=== PATIENT | male | born 1945 | race Caucasian/White ===

== ENCOUNTER → 2016-10-17 | Outpatient (REF) | payer MEDICARE ==
[~2016-10-17] MED LIST: ACET500T PO; AMLO10TA2 PO; AMLO5TAB2 PO; BISAC5TA PO; CALC-190 PO; CARV25TA PO; CORE25TA PO; FISH100035 PO; FLUV20CA2 PO; FURO40TA2 PO; LASI40TA PO; LISI40TAB PO; LOSA100T36 PO; PRAD75CA3 PO; VITA100066 PO; VITA500C PO; ZEST10TA4 PO; ZOCO40TA PO
[2016-10-17 20:57] LABS: PERCENT SATURATION 15.4 % (19.7-37.4)
== END ==
LOC: M LAB REF 17:36
PROVIDERS: ATTEND Internal Medicine Nephrology
DX: N18.9 Chronic kidney disease, unspecified (principal); D63.1 Anemia in chronic kidney disease

== ENCOUNTER 2016-10-25 07:50 | Outpatient (CLI) | payer MEDICARE ==
[~2016-10-25] VITALS: Ht 182.9 cm; Wt 147.1 kg
[2016-10-25] MEDS ORDERED: IRON SUCROSE 25 MG in NS 50 ML IV ONE (08:30)
[2016-10-25] MEDS ORDERED: IRON SUCROSE 475 MG in NS 250 ML IV ONE (09:30)
== END 2016-10-25 12:45 | disposition home or self-care (01) ==
LOC: M INFU 07:50
PROVIDERS: ATTEND Internal Medicine Nephrology
DX: D50.9 Iron deficiency anemia, unspecified (principal); I10 Essential (primary) hypertension; E78.5 Hyperlipidemia, unspecified; I50.9 Heart failure, unspecified; G47.30 Sleep apnea, unspecified; M19.90 Unspecified osteoarthritis, unspecified site; M54.2 Cervicalgia; Z87.891 Personal history of nicotine dependence; Z79.899 Other long term (current) drug therapy
CPT/HCPCS: 96365; 96366; J1756

== ENCOUNTER → 2019-02-17 | Outpatient (CLI) | payer MEDICARE ==
[~2019-02-17] MED LIST changes: -AMLO10TA2 PO; +AMLO10TA5 PO; -AMLO5TAB2 PO; +AMLO5TAB6 PO; -FISH100035 PO; +FISH7.5C PO; +LISI40TA PO; -LISI40TAB PO; -LOSA100T36 PO; +LOSA100T50 PO
--- NOTE | 2019-02-17 17:10 | REP ---
REASON: Dyspnea. COMPARISON: 09/24/2016, a portable exam. There is right CP angle blunting with an opacity in the right lower lobe representing a change from the prior exam. There is cardiomegaly. IMPRESSION: Abnormal right lobe opacity with evidence of pleural effusion, underlying pneumonia and or atelectasis can not be ruled out. This needs to be correlated clinically with appropriate. There is also cardiomegaly. Electronically Signed by Chavez Mcpherson DO 02/17/2019 05:20 P
== END ==
LOC: M WUC 15:50
PROVIDERS: ATTEND Nurse Practitioner Family
DX: R91.8 Other nonspecific abnormal finding of lung field (principal); I51.7 Cardiomegaly

== ENCOUNTER → 2019-04-28 | Outpatient (CLI) | payer MEDICARE ==
[~2019-04-28] MED LIST changes: +BAYE325T12 PO; +CARV6.25 PO; +IBUP200T45 PO; +LASI40TA9 PO; +ZYLO300T6 PO
--- NOTE | 2019-04-28 10:13 | REP ---
Chest x-ray: Two views. History: Heart failure. Comparison study: February 17, 2019. Findings: Moderate cardiomegaly is again observed unchanged. Pulmonary vasculature remains cephalized. There is blunting of the right lateral and posterior pleural angles indicating a small right pleural effusion. There is benign pleural thickening along the left lateral chest wall unchanged. No old left pleural effusion is noted. There is plate-like atelectasis versus linear fibrosis in the right perihilar region unchanged from the February 19, 2019 study. Impression: CHF pattern with cardiomegaly, vascular congestion, and right pleural effusion. Findings unchanged from February 17, 2019. Electronically Signed by Dexter Qureshi MD 04/28/2019 10:05 A
== END ==
LOC: M WUC 09:51
PROVIDERS: ATTEND Internal Medicine Nephrology
DX: I51.7 Cardiomegaly (principal); J90 Pleural effusion, not elsewhere classified; N18.3 Chronic kidney disease, stage 3 (moderate); R60.0 Localized edema; I50.9 Heart failure, unspecified

== ENCOUNTER 2019-04-30 13:18 | Inpatient (IN) | payer MEDICARE ==
[~2019-04-30] VITALS: Ht 180.3 cm; Wt 142.7 kg
[~2019-04-30 13:18] MED LIST changes: -BAYE325T12 PO; -CARV6.25 PO; -IBUP200T45 PO; -LASI40TA9 PO; -ZYLO300T6 PO
[2019-04-30] MEDS ORDERED: FURO40TA2 PO (13:56)
[2019-04-30] MEDS ORDERED: ZYLO300T6 PO (13:56)
[2019-04-30 14:01] LABS: BASO # 0.1 10^3/uL (0.0-0.2); BASO % 0.8 % (0.0-1.0); EOS # 0.4 10^3/uL (0.0-0.50); EOS % 4.5 % (0.0-3.0); HEMATOCRIT 39.2 % (42.0-52.0); HEMOGLOBIN 11.9 g/dl (13.5-17.5); LYMPH # 1.2 10^3/uL (1.5-4.5); LYMPH % 15.2 % (24.0-44.0); MEAN CORPUSCULAR HEMOGLOBIN 24.8 pg (27.0-33.0); MEAN CORPUSCULAR HGB CONC 30.4 g/dl (32.0-36.5); MEAN CORPUSCULAR VOLUME 81.7 fl (80.0-96.0); MONO # 0.6 10^3/uL (0.0-0.8); MONO % 8.3 % (0.0-5.0); NEUTROPHILS # 5.4 10^3/uL (1.8-7.7); NEUTROPHILS % 70.7 % (36.0-66.0); PLATELET COUNT, AUTOMATED 243 10^3/uL (150-450); WHITE BLOOD COUNT 7.7 10^3/uL (4.0-10.0)
[2019-04-30] MEDS ORDERED: BAYE325T12 PO (14:07)
[2019-04-30 14:15] LABS: INR 1.06; PARTIAL THROMBOPLASTIN TIME 30.8 SECONDS (25.0-38.4); PROTHROMBIN TIME 13.5 SECONDS (11.8-14.0)
[2019-04-30 14:36] LABS: ALBUMIN 3.4 GM/DL (3.2-5.2); ALT/SGPT 32 U/L (12-78); BILIRUBIN,DIRECT < 0.1 MG/DL (0.0-0.2); BILIRUBIN,TOTAL 0.4 MG/DL (0.2-1.0); BLOOD UREA NITROGEN 64 MG/DL (7-18); CALCIUM LEVEL 9.3 MG/DL (8.8-10.2); CARBON DIOXIDE LEVEL 29 MEQ/L (21-32); CHLORIDE LEVEL 102 MEQ/L (98-107); CK-MB VALUE MASS < 1.0 NG/ML (<3.6); CPK CREATINE PHOSPHOKINASE 149 U/L (39-308); FREE T4 0.97 NG/DL (0.76-1.46); GLOMERULAR FILTRATION RATE 23.7 (>42); GLUCOSE, FASTING 100 MG/DL (70-100); MB/CK RELATIVE INDEX 0.67 (< OR =4); NT-PRO BNP 1256 PG/ML (<125); POTASSIUM SERUM 5.3 MEQ/L (3.5-5.1); SODIUM LEVEL 140 MEQ/L (136-145); TOTAL PROTEIN 8.5 GM/DL (6.4-8.2); TROPONIN I < 0.02 NG/ML (< 0.10)
--- NOTE | 2019-04-30 14:45 | REP ---
Portable chest, 01:59 p.m., single AP view with the patient sitting: Comparison is 04/28/2019. There is cardiomegaly, unchanged. There is a right pleural effusion, unchanged. Pulmonary vascular flow appears cephalized, unchanged. The discoid atelectasis identified inferiorly in the right lung previously has resolved. Impression: No significant interval change except that the right lung discoid atelectasis has resolved. Electronically Signed by Efrain Rosario MD 04/30/2019 02:37 P
[2019-04-30 15:16] LABS: MAGNESIUM LEVEL 2.7 MG/DL (1.8-2.4)
[2019-04-30] MEDS ORDERED: IBUP200T45 PO (15:36)
[2019-04-30] MEDS ORDERED: MOM 30ML SUSPENSION UDC PO PRN (16:15)
[2019-04-30] MEDS ORDERED: FUROSEMIDE 100 MG/10 ML VIAL (J1940) IV ONE (17:00)
--- NOTE | 2019-04-30 19:19 | ECGEPIP ---
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
[2019-04-30 20:00] VITALS: BP 146/93
--- NOTE | 2019-04-30 20:07 | HPEPDOC ---
[facility] Medical History & Physical Date of Admission Apr 30, 2019 Date of Service: Apr 30, 2019 Primary Care Physician: Paulina Norton Attending Physician: PJ SAXENA MD History and Physical CHIEF COMPLAINT: Irregular rhythm on Holter monitor HISTORY OF PRESENT ILLNESS: Terry is a 73-year-old male who presented to the emergency department today on the request of his change management facilitator Dr. Duval after an irregular rhythm was detected on his Holter monitor this morning (). He was only put on a Holter monitor yesterday (04/29) during a scheduled cardiology visit. He was seen by his news clipping cutter on Sunday this week (04/28) who told him that he had developed fluid around his heart. He states that he's been retaining fluid in his lower extremities for the last 3 weeks, experiencing exertional dyspnea, and orthopnea. His PCP's nurse practitioner (Desiree Jean) recently increased his Lasix dose from 40 mg daily to 40 mg twice a day. He states this change in his Lasix considerably decreased his lower extremity edema and improved his exertional dyspnea. While he has had similar symptoms in the past, he states his current symptoms are the most. Patient was accompanied in the ED by his son and [id number]. While in the ED, an EKG, chest x-ray, BMP, CBC, thyroid panel, liver panel, magnesium and cardiac markers were all ordered. Patient was placed on cardiac telemetry. He will be admitted to the hospital under the care of the hospitalist team as we continue to optimize his fluid status and kidney function, and best address his irregular heart rhythm. PAST MEDICAL HISTORY: 1. Diastolic congestive heart failure 2. Chronic kidney disease 3. Essential hypertension 4. History of atrial flutter requiring ablation in 2012 5. Aortic stenosis 6. Obstructive sleep apnea, CPAP non-compliant 7. Gout PAST SURGICAL HISTORY: 1. 2013 ablation for atrial flutter 2. Cataract surgery SOCIAL HISTORY: Resides in: [place], [place] Children: 2 sons Employment:. Retired Tobacco use: Has not smoked in 40-50 years, and when he did, it was for a total of 3-4 years ETOH: None Illicit drug use: None FAMILY HISTORY: (Limited by patient's uncertainty and apathy) Hypertension ALLERGIES: Please see below. REVIEW OF SYSTEMS: CONSTITUTIONAL: Endorses- recent weight loss due to increase in Lasix dosage; Denies chills, diaphoresis, general weakness, fatigue. HEENT: Endorses- age-related hearing loss, rhinorrhea (most commonly in the morning); Denies headache, decreased visual acuity, diplopia, eye pain, ear pain, tinnitus, sore throat, dry mouth or dysphagia. CARDIOVASCULAR: Endorses- lower extremity edema, occasional orthostatic hypotension; Denies- chest pain, chest pressure, palpitations. RESPIRATORY: Endorses- exertional dyspnea, orthopnea; Denies- dyspnea at rest, pain with respiration, cough GASTROINTESTINAL: Denies abdominal pain, abdominal fullness, nausea, vomiting GENITOURINARY: Denies dysuria MUSCULOSKELETAL: Denies decrease in overall muscle strength. NEUROLOGICAL: Denies weakness or numbness. PSYCHIATRIC: Denies anxiety or depression. HOME MEDICATIONS: Please see below. PHYSICAL EXAMINATION: VITAL SIGNS: Please see below GENERAL APPEARANCE: Alert and cooperative elderly man who appears stated age; apathetic at times regarding personal health and medical history; malodorous body odor of urine. HEENT: Atraumatic, normocephalic. Non-icteric sclera. CARDIOVASCULAR: Regular rate, Irregular rhythm, systolic machine-like murmur heard best at right parasternal listening post; no anterior parasternal chest pain on palpitation. LUNGS: Mild crackles in right lung base posteriorly. No wheezes. No accessory muscle use. ABDOMEN:. Soft, mildly distended. Dullness to percussion in upper quadrants bilaterally. Normoactive bowel sounds. MUSCULOSKELETAL:. 5 out of 5 muscle strength testing upper extremity, lower extremity bilaterally. SKIN: Erythematous and weeping/moist sores of lower extremities bilaterally, indicative of chronic lower extremity fluid build-up and thinning of skin; Lower extremity skin sloughing bilaterally EXTREMITIES: Pitting lower extremity and pedal edema bilaterally; 2+ radial pulse bilaterally. NEUROLOGICAL: Sensation to light touch intact upper extremity and lower extre mity bilaterally. PSYCHIATRIC: Appropriate mood and affect. LABORATORY DATA: See below. IMAGING: Portable Chest X-ray, 04/30- showed no significant change except that previous right lung discoid atelectasishas resolved. . He has unchanged cardiomegaly, right pleural effusion, and cephalized pulmonary vascular flow. MICROBIOLOGY: Please see below. ASSESSMENT & PLAN: 1. Bradycardia with pauses and bigeminy and frequent premature ventricular contractions -Patient's rate is currently controlled but rhythm remains irregular with bigeminy and multiple PVCs -We discussed the possibility of patient needing pacemaker to control rate. Patient is amenable to this possibility. Dr. Boykin will see the patient tomorrow to discuss possibility of pacemaker. -We are holding patient's carvedilol due to bradycardia 2. Acutely decompensated diastolic CHF -Patient's Lasix dosage was switched to 60 mg twice a day to promote more substantial diuresis. We will continue to strictly monitor patient's intake and output as well as bed weight -Chest x-ray showed unchanged cardiomegaly. Due to patient's heart failure history, an echocardiogram was ordered 3. 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 We suspect the patient's baseline creatinine is better/lower than 2.8, given it was measured only two days ago. We will pursue office records to determine more accurately his baseline creatinine. -Patient's elevated creatinine is likely secondary to volume overload state due to heart failure. We will continue to monitor his creatinine as we diuresis and suspect it will improve his creatinine. -We will hold all nephrotoxic drugs 4. Essential hypertension -we will hold patient's beta ras (carvedilol) given his bradycardia and continue to monitor his vitals 5. EVERTON, non-compliant with CPAP 6. History of paroxysmal atrial flutter s/p ablation 2012 -Patient is currently on 5000 units of heparin for anticoagulation 7. 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 Gout 9. DVT prophylaxis Patient is receiving heparin 5000 units every 8 hours, subcutaneous Vital Signs Vital Signs Date Time Temp Pulse Resp B/P (MAP) Pulse Ox O2 Delivery O2 Flow Rate FiO2 04/30/19 18:18 81 95 04/30/19 18:17 97.0 20 Room Air 04/30/19 17:46 104/56 (72) Laboratory Data Labs 24H Laboratory Tests 2 04/30/19 13:45: Immature Granulocyte % (Auto) 0.5, White Blood Count 7.7, Red Blood Count 4.80, Hemoglobin 11.9L, Hematocrit 39.2L, Mean Corpuscular Volume 81.7, Mean Corpuscular Hemoglobin 24.8L, Mean Corpuscular Hemoglobin Concent 30.4L, Red Cell Distribution Width 17.4H, Platelet Count 243, Neutrophils (%) (Auto) 70.7H, Lymphocytes (%) (Auto) 15.2L, Monocytes (%) (Auto) 8.3H, Eosinophils (%) (Auto) 4.5H, Basophils (%) (Auto) 0.8, Neutrophils # (Auto) 5.4, Lymphocytes # (Auto) 1.2L, Monocytes # (Auto) 0.6, Eosinophils # (Auto) 0.4, Basophils # (Auto) 0.1, Nucleated Red Blood Cells % (auto) 0.0, Prothrombin Time 13.5, Prothromb Time International Ratio 1.06, Activated Partial Thromboplast Time 30.8, Anion Gap 9, Glomerular Filtration Rate 23.7L, Calcium Level 9.3, Magnesium Level 2.7H, Aspartate Amino Transf (AST/SGOT) 39H, Alanine Aminotransferase (ALT/SGPT) 32, Alkaline Phosphatase 77, Total Bilirubin 0.4, Direct Bilirubin < 0.1, Total Creatine Kinase 149, Creatine Kinase MB < 1.0, Creatine Kinase MB Relative Index 0.67, Troponin I < 0.02, WV-Wck-A-Type Natriuretic Peptide 1256H, Total Protein 8.5H, Albumin 3.4, Albumin/Globulin Ratio 0.67L, Thyroid Stimulating Hormone (TSH) 4.650H, Free Thyroxine 0.97 CBC/BMP Laboratory Tests 04/30/19 13:45 Red Blood Count 4.80, Mean Corpuscular Volume 81.7, Mean Corpuscular Hemoglobin 24.8 L, Mean Corpuscular Hemoglobin Concent 30.4 L, Red Cell Distribution Width 17.4 H, Neutrophils (%) (Auto) 70.7 H, Lymphocytes (%) (Auto) 15.2 L, Monocytes (%) (Auto) 8.3 H, Eosinophils (%) (Auto) 4.5 H, Basophils (%) (Auto) 0.8, Neutrophils # (Auto) 5.4, Lymphocytes # (Auto) 1.2 L, Monocytes # (Auto) 0.6, Eosinophils # (Auto) 0.4, Basophils # (Auto) 0.1 Home Medications Scheduled Allopurinol (Zyloprim) 300 Mg Tablet, 300 MG PO DAILY Aspirin (Aspirin) 325 Mg Tablet, 325 MG PO DAILY Carvedilol (Carvedilol) 25 Mg Tab, 25 MG PO BID Cholecalciferol (Vitamin D3) (Vitamin D3) 1,000 Unit Tab, 1,000 UNIT PO QHS Furosemide (Furosemide) 40 Mg Tablet, 40 MG PO DAILY [place]-3/Dha/Epa/Fish Oil (Fish Oil EC 1,000 mg Softgel) 1 Cap Cap, 1 CAP PO QHS Scheduled PRN Ibuprofen (Ibu-200) 200 Mg Tablet, 600 MG PO Q6H PRN for PAIN Allergies Coded Allergies: Dgpyftx-Iyc-Aqb Reductase Inhibitor (Verified Adverse Reaction, Unknown, STILL/SORE JOINTS, 04/30/19) A-FIB/CHADSVASC A-FIB History Current/History of A-Fib/PAF?: Yes Current PO Anticoag Therapy: Yes Attending Note Attending Note I performed a history and physical examination and discussed the management with the resident and medical student. I reviewed the resident's note and agree with the documented findings and plan of care with following addendum/ amendments. Abnormal holter findings of sinus bradycardia, wide complex tachycardia, ventricular bigemini, sinus pauses upto 4.8 seconds so was sent in by the change management facilitator. patient is on Coreg so will hold it, place on telemetry with pacer pads on . will stop the betablocker and monitor heart rate. Morbid obesity with EVERTON stopped using his CPAP 1 year ago because he felt it was not helping. Diastolic CHF exacerbation continue on lasix, fluid rests Belkis on CKD baseline creatinine around 1.5 to 1.8. this is probably due to fluid overload and chf. Bilateral venous stasis with stasis dermatits and stasis rubor. Both the legs are red with superficial stasis ulcers. I do not think ther is any cellulitis. Sacral decubitus ulcer present. YEN BUTLER PGY-1 Apr 30, 2019 20:07 PJ SAXENA MD Apr 30, 2019 23:01
[2019-04-30] MEDS: OMEGA-3 1000MG CAPSULE PO SCH (21:12)
[2019-04-30] MEDS: HEPARIN SOD (PORCINE) 5000 UNITS/ML VIAL SC SCH (21:12)
[2019-04-30 23:59] VITALS: BP 172/69
[2019-05-01 04:00] VITALS: BP 127/64
[2019-05-01 04:57] LABS: HEMATOCRIT 35.6 % (42.0-52.0); HEMOGLOBIN 10.8 g/dl (13.5-17.5); MEAN CORPUSCULAR HEMOGLOBIN 24.1 pg (27.0-33.0); MEAN CORPUSCULAR HGB CONC 30.3 g/dl (32.0-36.5); MEAN CORPUSCULAR VOLUME 79.5 fl (80.0-96.0); PLATELET COUNT, AUTOMATED 241 10^3/uL (150-450); RED BLOOD COUNT 4.48 10^6/uL (4.30-6.10); WHITE BLOOD COUNT 7.3 10^3/uL (4.0-10.0)
[2019-05-01] MEDS: HEPARIN SOD (PORCINE) 5000 UNITS/ML VIAL SC SCH ×3 (05:17→20:25)
[2019-05-01 05:19] LABS: CREATININE FOR GFR 2.58 MG/DL (0.70-1.30); MAGNESIUM LEVEL 2.6 MG/DL (1.8-2.4); POTASSIUM SERUM 3.4 MEQ/L (3.5-5.1)
[2019-05-01] MEDS ORDERED: POTASSIUM CHLORIDE 10 MEQ SR TABLET PO ONE (05:45)
[2019-05-01] MEDS ORDERED: FUROSEMIDE 100 MG/10 ML VIAL (J1940) IV SCH (06:00)
[2019-05-01] MEDS ORDERED: FUROSEMIDE 40 MG/4 ML VIAL (J1940) IV SCH (06:00)
[2019-05-01 08:00] VITALS: BP 130/73
[2019-05-01] MEDS: ASPIRIN 325 MG TAB PO SCH (08:59)
[2019-05-01] MEDS ORDERED: SLF 3 ML SYR IV PRN (09:00)
[2019-05-01] MEDS: ACETAMINOPHEN TAB 650MG DOSE (2X325MG) PO PRN ×2 (09:01→20:35)
--- NOTE | 2019-05-01 11:47 | IPNPDOC ---
Subjective Date Seen The patient was seen on 05/01/19. Subjective Chief Complaint/HPI Terry was seen and examined this morning while sitting upright in a chair next to his hospital bed. He denies any palpitations currently, or overnight. He states he's been urinating more frequently and denies any dysuria. He was able to ambulate to and from the bathroom without much exertional dyspnea. He had to sleep sitting upright in his chair overnight. He denies any acute pain or adverse events overnight. He is eating and drinking without any issues. General: Denies: Chills Constitutional: Denies: Fever ENT: Denies: Head Aches Pulmonary: Reports: Dyspnea (mild exertional dyspnea); Denies: Cough, Pleuritic Chest Pain Cardiovascular: Reports: Orthopnea; Denies: Chest Pain, Palpitations Gastrointestinal: Denies: Nausea, Vomiting, Abdominal Pain Genitourinary: Denies: Dysuria Neurological: Denies: Weakness, Numbness Objective Physical Examination General Exam: Positive: Alert, Cooperative, Other (appears stated age, sitting comfortably in upright chair) ENT Exam: Negative: Atraumatic Chest Exam: Positive: Rhonchi (moderately coarse breath sounds); Negative: Rales, Wheezing Heart Exam: Positive: Rate Normal (on the lower end of normal but not quite bradycardic), Normal S2, Murmurs (blowing systolic murmur heard best in the second intercostal space on the right); Negative: Gallops, Rubs Telemetry: Positive: PVCs (some PVCs scattered throughout), Other Telemetry: (bigeminy is present); Negative: Atrial fibrillation, Tachycardia, Pause (No pauses this morning seen on telemetry review) Abdomen Exam: Positive: Normal bowel sounds, Soft; Negative: Tenderness Extremity Exam: Positive: Edema (pitting lower extremity and pedal edema bilaterally), Normal pulses (, 2+ radial pulses, difficult to accurately assess posterior tibial or dorsalis pedis pulses due to significant edema and skin breakdown of bilateral lower extremities) Skin Exam: Positive: Other skin issue (. Venous stasis dermatitis with active skin sloughing; venous stasis rubor with active weeping/moist areas of skin breakdown on b/l lower extremities, more pronounced on the left lower extremity); Negative: Pruritus Neuro Exam: Positive: Strength at 5/5 X4 ext Psych Exam: Positive: Mental status NL, Mood NL, Oriented x 3 Assessment /Plan Assessment ASSESSMENT & PLAN: 1. Bradycardia with pauses and bigeminy and frequent premature ventricular contractions -Patient's rate is currently controlled but rhythm remains irregular with bigeminy and multiple PVCs. -There were no pauses visualized on telemetry exam this morning. -We discussed the possibility of patient needing pacemaker to control rate. Patient is amenable to this possibility. -Dr. Boykin who is also following along with the patient would like him to resume his carvedilol at 6.25 mg bid 2. Acutely decompensated diastolic CHF -Patient's Lasix dosage was switched to 60 mg twice a day to promote more substantial diuresis. Patient weight dropped roughly 1-1/2 kg overnight and had examination this morning, his overall I&O net was about -1000 mL. We will continue to strictly monitor patient's intake and output as well as bed weight -Chest x-ray showed unchanged cardiomegaly. Due to patient's heart failure history, an echocardiogram was ordered and we are awaiting interpretation. 3. 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 -Patient's creatinine in the ED measured 2.8, while it was 2.3 on Sunday (04/28) in his manager special events's office. We suspect the patient's baseline creatinine is better/lower than 2.8, given it was measured only two days ago. We will pursue office records to determine more accurately his baseline creatinine. -Patient's elevated creatinine is likely secondary to volume overload state due to heart failure. We will continue to monitor his creatinine as we diuresis and suspect it will improve his creatinine. -We will hold all nephrotoxic drugs 4. Essential hypertension -Patient was put back on carvedilol 6.25 mg bid this morning per Dr. Boykin. We will continue to monitor his vitals 5. EVERTON, non-compliant with CPAP 6. History of paroxysmal atrial flutter s/p ablation 2012 -Patient is currently on 5000 units of heparin for anticoagulation 7. 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 Gout 9. DVT prophylaxis Patient is receiving heparin 5000 units every 8 hours, subcutaneous Plan/VTE VTE Prophylaxis Ordered?: Yes VS, I&O, 24H, Fishbone Vital Signs/I&O Vital Signs Date Time Temp Pulse Resp B/P (MAP) Pulse Ox O2 Delivery O2 Flow Rate FiO2 05/01/19 08:00 97.5 69 20 130/73 (92) 94 04/30/19 19:03 Room Air I&O- Last 24 Hours up to 6 AM 05/01/19 06:00 Intake Total 840 ml Output Total 1675 ml Balance -835 ml Laboratory Data 24H LABS Laboratory Tests 2 04/30/19 13:45: Immature Granulocyte % (Auto) 0.5, White Blood Count 7.7, Red Blood Count 4.80, Hemoglobin 11.9L, Hematocrit 39.2L, Mean Corpuscular Volume 81.7, Mean Corpuscular Hemoglobin 24.8L, Mean Corpuscular Hemoglobin Concent 30.4L, Red Steffi l Distribution Width 17.4H, Platelet Count 243, Neutrophils (%) (Auto) 70.7H, Lymphocytes (%) (Auto) 15.2L, Monocytes (%) (Auto) 8.3H, Eosinophils (%) (Auto) 4.5H, Basophils (%) (Auto) 0.8, Neutrophils # (Auto) 5.4, Lymphocytes # (Auto) 1.2L, Monocytes # (Auto) 0.6, Eosinophils # (Auto) 0.4, Basophils # (Auto) 0.1, Nucleated Red Blood Cells % (auto) 0.0, Prothrombin Time 13.5, Prothromb Time International Ratio 1.06, Activated Partial Thromboplast Time 30.8, Anion Gap 9, Glomerular Filtration Rate 23.7L, Calcium Level 9.3, Magnesium Level 2.7H, Aspartate Amino Transf (AST/SGOT) 39H, Alanine Aminotransferase (ALT/SGPT) 32, Alkaline Phosphatase 77, Total Bilirubin 0.4, Direct Bilirubin < 0.1, Total Creatine Kinase 149, Creatine Kinase MB < 1.0, Creatine Kinase MB Relative Index 0.67, Troponin I < 0.02, RV-Cof-L-Type Natriuretic Peptide 1256H, Total Protein 8.5H, Albumin 3.4, Albumin/Globulin Ratio 0.67L, Thyroid Stimulating Hormone (TSH) 4.650H, Free Thyroxine 0.97 05/01/19 04:27: Nucleated Red Blood Cells % (auto) 0.0, Anion Gap 7L, Glomerular Filtration Rate 26.0L, Calcium Level 9.0, Magnesium Level 2.6H, Blood Urea Nitrogen 56H, Creatinine 2.58H, Sodium Level 141, Potassium Level 3.4#L, Chloride Level 102, Carbon Dioxide Level 32 CBC/BMP Laboratory Tests 04/30/19 13:45 Red Blood Count 4.80, Mean Corpuscular Volume 81.7, Mean Corpuscular Hemoglobin 24.8 L, Mean Corpuscular Hemoglobin Concent 30.4 L, Red Cell Distribution Width 17.4 H, Neutrophils (%) (Auto) 70.7 H, Lymphocytes (%) (Auto) 15.2 L, Monocytes (%) (Auto) 8.3 H, Eosinophils (%) (Auto) 4.5 H, Basophils (%) (Auto) 0.8, Neutrophils # (Auto) 5.4, Lymphocytes # (Auto) 1.2 L, Monocytes # (Auto) 0.6, Eosinophils # (Auto) 0.4, Basophils # (Auto) 0.1 05/01/19 04:27 Red Blood Count 4.48, Mean Corpuscular Volume 79.5 L, Mean Corpuscular Hemoglobin 24.1 L, Mean Corpuscular Hemoglobin Concent 30.3 L, Red Cell Distribution Width 17.5 H, Calcium Level 9.0 Attending Note Attending Note I have personally seen and examined the patient this am. I agree with the finding and the plan of care as documented above in the resident's note. Telemetry personally reviewed. Overnight no pauses noted. Does have frequent bigeminis. Leg swelling improving. Creatinine improving.Echo done. will continue with diuresis. will increase lasix to tid. I personally discussed the patient with Dr Boykin and as per his recommendation will start him on low dose coreg and observe. He does have h/o tachy cardia induced cardiomyopathy with systolic chf with ef of 30 % in 2013 which has fortunately recovered after control of his tachycardia then. SO his heart rate shoul always remain controlled. YEN BUTLER PGY-1 May 01, 2019 11:47 PJ SAXENA MD May 01, 2019 16:38
[2019-05-01 12:00] VITALS: BP 116/58
[2019-05-01] MEDS: CARVedilol 6.25 MG TAB PO SCH ×2 (12:08→20:25)
[2019-05-01] MEDS: SLF 3 ML SYR IV SCH ×2 (13:41→20:27)
[2019-05-01 16:00] VITALS: BP 135/59
[2019-05-01 20:00] VITALS: BP 141/69
[2019-05-01] MEDS: OMEGA-3 1000MG CAPSULE PO SCH (20:25)
[2019-05-01] MEDS: FUROSEMIDE 100 MG/10 ML VIAL (J1940) IV SCH (20:26)
[2019-05-01 23:59] VITALS: BP 132/58
[2019-05-02 04:00] VITALS: BP 143/67
[2019-05-02 04:51] LABS: HEMATOCRIT 39.6 % (42.0-52.0); HEMOGLOBIN 11.6 g/dl (13.5-17.5); MEAN CORPUSCULAR HEMOGLOBIN 23.8 pg (27.0-33.0); MEAN CORPUSCULAR HGB CONC 29.3 g/dl (32.0-36.5); MEAN CORPUSCULAR VOLUME 81.1 fl (80.0-96.0); PLATELET COUNT, AUTOMATED 260 10^3/uL (150-450); RED BLOOD COUNT 4.88 10^6/uL (4.30-6.10); WHITE BLOOD COUNT 8.6 10^3/uL (4.0-10.0)
[2019-05-02 05:15] LABS: CALCIUM LEVEL 9.6 MG/DL (8.8-10.2); CREATININE FOR GFR 2.5 MG/DL (0.70-1.30); MAGNESIUM LEVEL 2.8 MG/DL (1.8-2.4); POTASSIUM SERUM 3.8 MEQ/L (3.5-5.1)
[2019-05-02] MEDS: HEPARIN SOD (PORCINE) 5000 UNITS/ML VIAL SC SCH ×3 (06:14→21:46)
[2019-05-02] MEDS: SLF 3 ML SYR IV SCH ×3 (06:14→23:30)
[2019-05-02] MEDS: FUROSEMIDE 100 MG/10 ML VIAL (J1940) IV SCH ×3 (06:14→21:46)
--- NOTE | 2019-05-02 07:58 | CR ---
DATE OF CONSULTATION: 04/30/2019 REFERRING PHYSICIAN: Dr. Wendy Dye REASON FOR CONSULTATION: Cardiac arrhythmia, sinus pause. HISTORY OF PRESENT ILLNESS: : 73-year-old man well known by the office and usually sees Dr. Romeo. On 04/29/2019 he was seen in the office by the PA upon the recommendation of his executive sales manager. He has been retaining fluids and he was found to have findings consistent with congestive failure on chest x-ray. His furosemide was increased, doubled up by his primary, and he developed some worsening kidney function and then his ARB was discontinued. He was found in the office to have bigeminy on EKG and was given a Holter monitor. This morning at 5:00 to 5:30, he was found to have a couple sinus pauses and the longest was about 4.8 seconds and he was seen in the emergency room for further evaluation. In the emergency room, he was found to be in bigeminy and his vital signs were stable. When I saw him, he was sitting up in the chair and he was in no acute distress at rest. Multiple family members were at bedside. He denies palpitations, dizziness, syncope or near syncope. He stated that his shortness of breath and pedal edema have improved but he continues to have weeping lower extremities, particularly the left lower extremity. He denies any orthopnea or paroxysmal nocturnal dyspnea. He has no cough, hemoptysis or fever. He has no focal manifestation. He usually takes his medication regularly and he has been on carvedilol at 25 mg by mouth twice a day, which he took this morning. He denies palpitation and he stated that he has not been having any palpitations since he had his admission. 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 His most recent left ventricular ejection fraction by echocardiogram was reported to be normal in 2016 as well as in 2019. 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 He also has a history of gout and anemia. There is no history of coronary disease, myocardial infarction, CVA or transient ischemic attack (TIA). MEDICATIONS AT HOME: - allopurinol 100 mg by mouth daily - amlodipine 10 mg tablet 1-1/2 by mouth daily - aspirin 325 mg by mouth daily - carvedilol 25 mg by mouth twice a day - ferrous sulfate 325 mg by mouth daily - furosemide 40 mg by mouth twice a day - fish oil one tablet by mouth daily - vitamin C - D2 400 units in one tablet by mouth three times daily PAST SURGICAL HISTORY: Positive for cardiac surgery. FAMILY HISTORY: Positive for hypertension and diabetes mellitus. SOCIAL HISTORY: The patient lives in [place] and he has multiple family who live in the area and are very supportive. He is a former smoker and quit 1974. He denies EtOH abuse. He is active but not exercising. ALLERGIES: He has intolerance to STATINS. CODE STATUS: The patient is a FULL CODE. PHYSICAL EXAMINATION: The patient is alert and oriented, in no acute distress at rest and his vital signs in the emergency room revealed a blood pressure of 104/56 with a pulse of 84, respiration 18 to 20, maximum temperature is 97 degrees Fahrenheit with an oxygen saturation of 95% on room air. HEAD: Normocephalic, atraumatic. NECK: Supple and no jugular venous distention (JVD) appreciated. No carotid bruits heard. Lungs: No wheezing or crackles. Heart examination revealed irregular heart sounds without gallops. The point of maximum impulse (PMI) is nondisplaced. There is no rub. There is a systolic murmur grade 2/6 over the precordium, loudest at the base of the heart/aortic valve area with minimal radiation to the carotid arteries. Abdomen is soft and nontender. Extremities +2 bilateral lower leg edema. Neurologic: The patient is negative for focal deficit. LABORATORY DATA: BMP revealed a sodium of 140, potassium 5.3, chloride 102, CO2 29, BUN 64, creatinine 2.8, GFR 23.7 and calcium 9.3. Serum magnesium 2.7. Liver enzymes revealed a total bilirubin 0.4, AST 39 ALT 32, alkaline phosphatase 77, albumin 3.4. TSH is 4.6 with a Free T4 of 0.97. Pro BNP is 1256. CBC revealed a WBC of 7.7, hemoglobin 11.9, hematocrit 39.2 and platelet 143,000. Next PT was 13.5 and INR 1.06 and a PTT of 13.8. Telemetry was reviewed and revealed normal sinus rhythm with isolated PVCs and at times even bigeminy. There is an ECG with nonspecific ST-T abnormalities. Chest x-ray on admission revealed cardiomegaly and right pleural effusion, increased vascular markings. No remarkable changes from 04/28/2019. CURRENT MEDICATIONS: - furosemide IV - aspirin 385 mg by mouth daily - heparin subcutaneous 5000 every 8 hours - fish oil 1000 mg by mouth - Tylenol 650 mg by mouth every 4 hours as needed - magnesium hydroxide 30 mL by mouth daily as needed for constipation. IMPRESSION: 73-year-old male with multiple medical programs was recently found to be in heart failure and his EKG revealed bigeminy. He has no history of coronary artery disease and his left ventricular ejection fraction is normal. He has a heart murmur involving the aortic valve with probably moderate aortic stenosis. He was given a Holter monitor and earlier today it revealed 4 to 5 second pause and he was sent to the ER for further evaluation. He was admitted and his condition was discussed with him, as well as his family present in the room and his hospitalist. We will hold the carvedilol for 24 hours and if he remains stable it will be restarted but at the lower dose. We will assess his LVEF while in the hospital and at the same time reassess his underlying aortic stenosis. His blood pressure seems to be under control and he will be monitored. If needed, we can restart him on the amlodipine but at a smaller dose of hydralazine or spirolactone and in that case, we will have to monitor closely his urine creatinine and serum potassium. If his kidney function does not improve while in the hospital, I will ask for a nephrology consult. At the present time, there is no indication for a pacemaker implantation. He was told that he might need one in time. It was a pleasure to participate in the care of Mr. Terry Julio for his underlying cardiac condition. I will continue to monitor him along with you while in the hospital. Upon discharge, he will continue to follow with the office. Please do not hesitate to call if any questions. BRETT
[2019-05-02 08:00] VITALS: BP 139/68
[2019-05-02] MEDS: CARVedilol 6.25 MG TAB PO SCH ×2 (08:43→21:47)
[2019-05-02] MEDS: ASPIRIN 325 MG TAB PO SCH (08:43)
--- NOTE | 2019-05-02 09:57 | IPNPDOC ---
Subjective Date Seen The patient was seen on 05/02/19. Subjective Chief Complaint/HPI Terry was seen and examined this morning sitting upright in a chair next to his bed. He continues to have moderate exertional dyspnea when ambulating to the bathroom. He says he doesn't have dyspnea at rest. He denies feeling any palpitations/abnormal heartbeats. He is eating and drinking without any issues. Patient denies any pain now or overnight. General: Denies: Chills Constitutional: Denies: Fever ENT: Denies: Head Aches Pulmonary: Reports: Dyspnea (exertional when ambulating to bathroom) Cardiovascular: Reports: Orthopnea; Denies: Chest Pain, Palpitations Gastrointestinal: Denies: Nausea, Vomiting, Abdominal Pain Genitourinary: Denies: Dysuria Musculoskeletal: Denies: Neck Pain, Back Pain Neurological: Denies: Numbness Objective Physical Examination General Exam: Positive: Alert, Cooperative, Other (appears stated age, sitting comfortably in upright chair) ENT Exam: Negative: Atraumatic Chest Exam: Positive: Rhonchi (moderately coarse breath sounds); Negative: Rales, Wheezing Heart Exam: Positive: Rate Normal (on the lower end of normal but not quite bradycardic), Normal S2, Murmurs (blowing systolic murmur heard best in the second intercostal space on the right); Negative: Gallops, Rubs Telemetry: Positive: PVCs (some PVCs scattered throughout), Other Telemetry: (bigeminy is present); Negative: Atrial fibrillation, Tachycardia, Pause (No pauses this morning seen on telemetry review) Abdomen Exam: Positive: Normal bowel sounds, Soft; Negative: Tenderness Extremity Exam: Positive: Edema (pitting lower extremity and pedal edema bilaterally that is improved from previous days, most especially left lower extremity), Normal pulses (, 2+ radial pulses, difficult to accurately assess posterior tibial or dorsalis pedis pulses due to significant edema and skin breakdown of bilateral lower extremities) Skin Exam: Positive: Other skin issue (. Venous stasis dermatitis with active skin sloughing; venous stasis rubor with active weeping/moist areas of skin breakdown on b/l lower extremities, more pronounced on the left lower extremity); Negative: Pruritus Neuro Exam: Positive: Strength at 5/5 X4 ext Psych Exam: Positive: Mental status NL, Mood NL, Oriented x 3 Assessment /Plan Assessment 1. Bradycardia with pauses and bigeminy and frequent premature ventricular contractions -Patient's rate is currently controlled but rhythm remains irregular with bigeminy and PVCs. -There were no pauses visualized on telemetry exam this morning or overnight. -Patient had a margarita low of 41 overnight -We discussed the possibility of patient needing pacemaker to control rate. Patient is amenable to this possibility. -Dr. Boykin is following patient and would like him to resume his carvedilol at 6.[address] Boykin does not believe pacemaker is currently indicated. 2. Acutely decompensated diastolic CHF -Patient's Lasix dose currently 60 mg every 8 hours. This dosing was increased to promote more substantial diuresis. Patient weight stayed relatively the same from yesterday, his overall I&O net was about -250 mL. We will continue to strictly monitor patient's intake and output, as well as bed weight -Chest x-ray showed unchanged cardiomegaly. Due to patient's heart failure history, an echocardiogram was ordered and we are awaiting interpretation. 3. 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 -Patient's creatinine in the ED measured 2.8, while it was 2.3 on Sunday (04/28) in his quill machine tender's office. We suspect the patient's baseline creatinine is better/lower than 2.8, given it was measured only two days ago. We will pursue office records to determine more accurately his baseline creatinine. -Patient's elevated creatinine is likely secondary to volume overload state due to heart failure. We will continue to monitor his creatinine as we diuresis and suspect it will improve his creatinine. -We will hold all nephrotoxic drugs 4. Essential hypertension -Patient was put back on carvedilol 6.25 mg bid this morning per Dr. Boykin. We will continue to monitor his vitals 5. [place], non-compliant with CPAP 6. History of paroxysmal atrial flutter s/p ablation 2012 -Patient is currently on 5000 units of heparin for anticoagulation 7. 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 Gout 9. DVT prophylaxis Patient is receiving heparin 5000 units every 8 hours, subcutaneous Plan/VTE VTE Prophylaxis Ordered?: Yes VS, I&O, 24H, Fishbone Vital Signs/I&O Vital Signs Date Time Temp Pulse Resp B/P (MAP) Pulse Ox O2 Delivery O2 Flow Rate FiO2 05/02/19 08:43 72 139/68 05/02/19 08:00 97.1 18 97 04/30/19 19:03 Room Air l I&O- Last 24 Hours up to 6 AM 05/02/19 06:00 Intake Total 1535 ml Output Total 1425 ml Balance 110 ml Laboratory Data 24H LABS Laboratory Tests 2 05/02/19 04:14: Nucleated Red Blood Cells % (auto) 0.0, Anion Gap 7L, Glomerular Filtration Rate 27.0L, Blood Urea Nitrogen 57H, Creatinine 2.50H, Sodium Level 141, Potassium Level 3.8, Chloride Level 102, Carbon Dioxide Level 32, Calcium Level 9.6, Magnesium Level 2.8H CBC/BMP Laboratory Tests 05/02/19 04:14 Red Blood Count 4.88, Mean Corpuscular Volume 81.1, Mean Corpuscular Hemoglobin 23.8 L, Mean Corpuscular Hemoglobin Concent 29.3 L, Red Cell Distribution Width 17.6 H, Calcium Level 9.6 Attending Note Attending Note I have personally seen and examined the patient this am. I agree with the sky ramos and the plan of care as documented above in the resident's note. Bradycardia and sinus pauses: In telemetry overnight had some sinus margarita lowest to 41 during sleep no pauses. Has been started on low dose coreg will continue to monitor today. History of tachycardia induced cardiomyopathy from untreated atrial flutter in 2013 now reported to be resolved after correction of his tachycardia. Echo. Aortic stenosis needs to be reassessed. echo ordered. His renal functions are same as yesterday . I have increased his diuretic as he continues to have features of significant fluid overload and i think the patient has cardiorenal syndrome so will have to improve his volume status further. YEN BUTLER PGY-1 May 02, 2019 09:57 PJ SAXENA MD May 02, 2019 11:30
[2019-05-02 12:00] VITALS: BP 120/58
[2019-05-02] MEDS: ACETAMINOPHEN TAB 650MG DOSE (2X325MG) PO PRN ×2 (14:44→21:44)
[2019-05-02 16:00] VITALS: BP 122/58
--- NOTE | 2019-05-02 19:53 | ECHO ---
DATE OF PROCEDURE: 05/01/2019 REFERRING PHYSICIAN: Wendy Dye MD PATIENT LOCATION: Room 3217 REASON FOR ECHOCARDIOGRAM: Cardiac arrhythmias. 2D MEASUREMENTS: IVS: 1.2 cm LV 5.4 cm LVPW: 1.2 cm LA: 4.6 cm Aorta: 3.6 cm IVC; 2.6 cm DOPPLER MEASUREMENTS: Peak velocity across the aortic valve: 2.1 m/s Peak velocity across the LVOT: 0.46 m/s Peak gradient across the aortic valve: 17 mmHg Mitral E: 0.60, Mitral A: 0.52 with a ratio of 1.1 Maximum tricuspid valve velocity: 1.9 m/s 2D COMMENTS: 1. Technically limited study due to poor acoustic window. 2. The left ventricular size is normal with probably mildly increased left ventricular wall thickness. The estimated global left ventricular systolic function is also normal at 55%. 3. Mildly enlarged left atrium. The right atrium and the right ventricle appeared to be normal in limited views. 4. The atrial septum appeared to be normal without evidence of defect or shunt. 5. Normal aortic root. 6. No pericardial effusion seen. 7. Mildly calcified aortic valve with minimally restricted leaflet motion. Mildly calcified mitral annulus with normal anterior mitral leaflet motion. Normal tricuspid valve. The pulmonic and proximal pulmonary artery branches were not well visualized. 8. The inferior vena cava was mildly enlarged, central venous pressure might be elevated. DOPPLER: It detects trace tricuspid regurgitation. The calculated pulmonary artery systolic pressure was normal. Assessment of the left ventricular diastolic function appeared to be normal, probably artifactual. IMPRESSION 1. Technically limited study due to poor acoustic window secondary to body habitus. 2. Low normal global left ventricular systolic function with probably mild concentric left ventricular hypertrophy. Assessment of the left ventricular diastolic function appeared to be normal. 3. Aortic valve sclerosis with mild aortic stenosis, but no aortic regurgitation. 4. Trace tricuspid regurgitation with a normal calculated pulmonary artery systolic pressure. 5. Pacemaker wire artifact noted. [facility]
[2019-05-02 20:00] VITALS: BP 139/63
[2019-05-02] MEDS: OMEGA-3 1000MG CAPSULE PO SCH (21:46)
[2019-05-02 23:59] VITALS: BP 140/63
[2019-05-03 04:00] VITALS: BP 138/72
[2019-05-03 05:39] LABS: HEMATOCRIT 36.2 % (42.0-52.0); HEMOGLOBIN 10.8 g/dl (13.5-17.5); MEAN CORPUSCULAR HEMOGLOBIN 23.9 pg (27.0-33.0); MEAN CORPUSCULAR HGB CONC 29.8 g/dl (32.0-36.5); MEAN CORPUSCULAR VOLUME 80.1 fl (80.0-96.0); PLATELET COUNT, AUTOMATED 240 10^3/uL (150-450); RED BLOOD COUNT 4.52 10^6/uL (4.30-6.10); WHITE BLOOD COUNT 7.2 10^3/uL (4.0-10.0)
[2019-05-03] MEDS: FUROSEMIDE 100 MG/10 ML VIAL (J1940) IV SCH (06:03)
[2019-05-03] MEDS: HEPARIN SOD (PORCINE) 5000 UNITS/ML VIAL SC SCH (06:03)
[2019-05-03] MEDS: SLF 3 ML SYR IV SCH (06:04)
[2019-05-03 06:09] LABS: CALCIUM LEVEL 8.8 MG/DL (8.8-10.2); CREATININE FOR GFR 2.04 MG/DL (0.70-1.30); GLOMERULAR FILTRATION RATE 34.2 (>42); MAGNESIUM LEVEL 2.4 MG/DL (1.8-2.4); POTASSIUM SERUM 3.5 MEQ/L (3.5-5.1)
[2019-05-03 08:00] VITALS: BP 125/73
[2019-05-03] MEDS: ASPIRIN 325 MG TAB PO SCH (08:44)
[2019-05-03 08:48] VITALS: BP 147/67
[2019-05-03] MEDS: CARVedilol 6.25 MG TAB PO SCH (08:48)
[2019-05-03 12:00] VITALS: BP 137/96
[2019-05-03] MEDS ORDERED: CARV6.25 PO (13:04)
[2019-05-03] MEDS ORDERED: FURO40TA2 PO (13:04)
--- NOTE | 2019-05-03 14:00 | DS.PDOC ---
Discharge Summary General Date of Admission Apr 30, 2019 at 16:04 Date of Discharge 05/03/2019 Attending Physician: PJ SAXENA MD Specialist/Consultants Involve: PATRICIA SIMPSON MD Discharge Summary PROCEDURES PERFORMED DURING STAY: None ADMITTING DIAGNOSES: 1. Bigeminy with sinus pauses and multiple premature ventricular contractions on EKG DISCHARGE DIAGNOSES: 1. Bigeminy with sinus pauses and multiple premature ventricular contractions on EKG 2. Acutely decompensated diastolic congestive heart failure 3. Acute kidney injury on chronic kidney disease 4. Essential hypertension 5. Obstructive sleep apnea, noncompliant with CPAP 6. Aortic valve sclerosis with mild aortic stenosis seen on echocardiogram 7. History of paroxysmal atrial flutter status post ablation (2012) 8. History of tachycardia-induced cardiomyopathy with an EF of 30%, normalized since 2012 9. Gout COMPLICATIONS/CHIEF COMPLAINT: Acute Kidney Injury,Sinus Bradycardia,Sinus Pause. HISTORY OF PRESENT ILLNESS: Terry is a 73-year-old male who presented to the emergency department on 04/30/2019 on the request of his bone char operator Dr. Duval after an irregular rhythm was detected on his Holter monitor this morning. He was only put on a Holter monitor yesterday (04/29) during a scheduled cardiology visit. He was seen by his escrow processor on Sunday this week (04/28), who told him that he had developed fluid around his heart. He states that he's been retaining fluid in his lower extremities for the last 3 weeks, experiencing exertional dyspnea, and orthopnea. His PCP's nurse practitioner (Desiree Jean) recently increased his Lasix dose from 40 mg once daily to 40 mg twice a day. He states this change in his Lasix considerably decreased his lower extremity edema and improved his exertional dyspnea. While he has had similar symptoms in the past, he states his current symptoms are the most significant. Patient was accompanied in the ED by his son and [id number]. While in the ED, an EKG, chest x-ray, BMP, CBC, thyroid panel, liver panel, magnesium and cardiac markers were all ordered. Patient was placed on cardiac telemetry. He will be admitted to the hospital under the care of the hospitalist team as we continue to optimize his fluid status and kidney function, and best address his irregular heart rhythm. HOSPITAL COURSE: Terry was admitted to the care of the hospitalist team and placed on cardiac telemetry. His heart rate remained controlled throughout his inpatient stay, but was bradycardic. As a result, carvedilol (25 mg daily) was held for the first 24 hours post admission. He remained stable for those 24 hours and then was restarted on carvedilol per cardiology, but at a lower dose of 6.25 mg. His rhythm remained irregular with bigeminy, but no sinus pauses were seen after admission, and the presence of PVCs resolved over the course of his stay. His Lasix dose was increased to 60 mg bid to promote more substantial diuresis. His intake and output was strictly monitored and his bed was weighed daily. Presenting elevated creatinine was likely secondary to volume overload state from acutely decompensated heart failure. All nephrotoxic drugs were held during inpatient stay. As diuresis increased, bilateral lower extremity edema and as sociated weeping (most prominently left lower extremity), as well as serum creatinine, steadily improved. To further promote more diuresis, Lasix administration dose of 60 mg was switched to every 8 hours from bid. Patient spoke with cardiology and was informed that he may need a pacemaker in time, but that there was no current indication for pacemaker implantation. For DVT prophylaxis, 5000 units of heparin were administered every 8 hours subcutaneously. DISCHARGE MEDICATIONS: Please see below. ALLERGIES: Please see below. PHYSICAL EXAMINATION ON DISCHARGE: VITAL SIGNS: Please see below. General Exam: Positive: Alert, Cooperative, Other (appears stated age, sitting comfortably in upright chair) ENT Exam: Negative: Atraumatic Chest Exam: Positive: Rhonchi (moderately coarse breath sounds); Negative: Rales, Wheezing Heart Exam: Positive: Rate Normal (on the lower end of normal but not quite bra dycardic), Normal S2, Murmurs (blowing systolic murmur heard best in the second intercostal space on the right); Negative: Gallops, Rubs Telemetry: Positive: PVCs (some PVCs scattered throughout), Other Telemetry: (bigeminy is present); Negative: Atrial fibrillation, Tachycardia, Pause (No pauses this morning seen on telemetry review) Abdomen Exam: Positive: Normal bowel sounds, Soft; Negative: Tenderness Extremity Exam: Positive: Edema (pitting lower extremity and pedal edema bilaterally that is improved from previous days, most especially left lower extremity), Normal pulses (, 2+ radial pulses, difficult to accurately assess posterior tibial or dorsalis pedis pulses due to significant edema and skin breakdown of bilateral lower extremities) Skin Exam: Positive: Other skin issue (. Venous stasis dermatitis with active skin sloughing; venous stasis rubor with active weeping/moist areas of skin breakdown on b/l lower extremities, more pronounced on the left lower extremity); Negative: Pruritus Neuro Exam: Positive: Strength at 5/5 X4 ext Psych Exam: Positive: Mental status NL, Mood NL, Oriented x 3 LABORATORY DATA: Please see below. IMAGING: Chest x-ray, 04/30/2019 showed no significant interval change except that the right lung discoid atelectasis has resolved Echocardiogram, 05/01 1. Technically limited study due to poor acoustic window secondary to body habitus. 2. Low normal global left ventricular systolic function with probably mild concentric left ventricular hypertrophy. Assessment of the left ventricular diastolic function appeared to be normal. 3. Aortic valve sclerosis with mild aortic stenosis, but no aortic regurgitation. 4. Trace tricuspid regurgitation with a normal calculated pulmonary artery systolic pressure. 5. Pacemaker wire artifact noted. PROGNOSIS: Fair ACTIVITY: As tolerated DIET: As tolerated Discharge plan and instructions for outpatient follow-up: 1. Follow-up with primary care provider in the next 7-10 days. 2. Follow-up with cardiology in the next 2-3 weeks area and 3. If symptoms that caused hospital admission should return and/or worsen, or if in emergent medical condition of any kind arises, patient is instructed to return to the emergency department. DISCHARGE CONDITION: Stable TIME SPENT ON DISCHARGE: Greater than 35 minutes. Vital Signs/I&Os Vital Signs Date Time Temp Pulse Resp B/P (MAP) Pulse Ox O2 Delivery O2 Flow Rate FiO2 05/03/19 12:00 97.1 70 20 137/96 (110) 95 04/30/19 19:03 Room Air I&O- Last 24 Hours up to 6 AM 05/03/19 05:59 Intake Total 1430 ml Output Total 2400 ml Balance -970 ml Laboratory Data Labs 24H Laboratory Tests 2 05/03/19 05:22: Nucleated Red Blood Cells % (auto) 0.0, Anion Gap 4L, Glomerular Filtration Rate 34.2L, Blood Urea Nitrogen 44H, Creatinine 2.04H, Sodium Level 140, Potassium Level 3.5, Chloride Level 102, Carbon Dioxide Level 34H, Calcium Level 8.8, Magnesium Level 2.4 CBC/BMP Laboratory Tests 05/03/19 05:22 Red Blood Count 4.52, Mean Corpuscular Volume 80.1, Mean Corpuscular Hemoglobin 23.9 L, Mean Corpuscular Hemoglobin Concent 29.8 L, Red Cell Distribution Width 17.4 H, Calcium Level 8.8 Discharge Medications Scheduled Allopurinol (Zyloprim) 300 Mg Tablet, 300 MG PO DAILY, (Reported) Aspirin (Aspirin) 325 Mg Tablet, 325 MG PO DAILY, (Reported) Carvedilol (Carvedilol) 6.25 Mg Tablet, 6.25 MG PO BID Cholecalciferol (Vitamin D3) (Vitamin D3) 1,000 Unit Tab, 1,000 UNIT PO QHS, (Reported) Furosemide (Lasix) 40 Mg Tablet, 40 MG PO BID 2tabs in Am and 1 tab in PM [place]-3/Dha/Epa/Fish Oil (Fish Oil EC 1,000 mg Softgel) 1 Cap Cap, 1 CAP PO QHS, (Reported) Allergies Coded Allergies: [id number] Reductase Inhibitor (Verified Adverse Reaction, Unknown, STILL/SORE JOINTS, 04/30/19) YEN BUTLER PGY-1 May 03, 2019 13:59
[2019-05-03] MEDS ORDERED: LASI40TA9 PO (18:17)
== END 2019-05-03 14:37 | disposition home or self-care (01) | DRG 314 ==
LOC: M ED 13:18 → M ED INP 16:04 → M PCU 19:56
PROVIDERS: ADMIT Internal Medicine Nephrology; ATTEND Internal Medicine Nephrology
DX: R00.8 Other abnormalities of heart beat (principal); I50.33 Acute on chronic diastolic (congestive) heart failure; I13.0 Hypertensive heart and chronic kidney disease with heart failure and stage 1 through stage 4 chronic kidney disease, or unspecified chronic kidney disease; N17.9 Acute kidney failure, unspecified; N18.4 Chronic kidney disease, stage 4 (severe); I48.3 Typical atrial flutter; M10.9 Gout, unspecified; G47.33 Obstructive sleep apnea (adult) (pediatric); Z91.19 Patient's noncompliance with other medical treatment and regimen; I35.0 Nonrheumatic aortic (valve) stenosis; I49.3 Ventricular premature depolarization; Z79.82 Long term (current) use of aspirin; Z79.899 Other long term (current) drug therapy; Z88.8 Allergy status to other drugs, medicaments and biological substances; E66.01 Morbid (severe) obesity due to excess calories; L89.159 Pressure ulcer of sacral region, unspecified stage

== ENCOUNTER → 2020-04-29 | Outpatient (REF) | payer MEDICARE ==
[~2020-04-29] MED LIST changes: -AMLO10TA5 PO; +AMLO1TAB24 PO; +AMLO1TAB25 PO; -AMLO5TAB6 PO; +BAYE325T12 PO; +CARV6.25 PO; +IBUP200T45 PO; +LASI40TA9 PO; +ZYLO300T6 PO
== END ==
LOC: M LAB REF 12:12
PROVIDERS: ATTEND Internal Medicine
DX: M10.9 Gout, unspecified (principal)

== ENCOUNTER → 2020-08-02 | Outpatient (CLI) | payer MEDICARE ==
--- NOTE | 2020-08-02 12:01 | REP ---
INDICATION: SOB COMPARISON: 04/28/2019 TECHNIQUE: PA and lateral. FINDINGS: Blunting of the costophrenic angles and diaphragmatic surfaces along with chronic bibasilar pleuroparenchymal changes are similar to multiple prior examinations. However, superimposed acute on chronic pleural effusions and lower lobe atelectasis cannot definitively be excluded. Mild pulmonary vascular congestion and interstitial edema cannot be excluded as well. IMPRESSION: Chronic changes similar to prior examination. Superimposed pulmonary vascular congestion/interstitial edema as well as acute on chronic pleural effusions and bibasilar atelectasis cannot definitively be excluded. <Electronically signed by Jagdish High > 08/02/20 [id number]
== END ==
LOC: M WUC 11:23
PROVIDERS: ATTEND Internal Medicine
DX: R06.02 Shortness of breath (principal); R91.8 Other nonspecific abnormal finding of lung field

== ENCOUNTER → 2020-11-08 | Outpatient (REF) | payer MEDICARE ==
[~2020-11-08] MED LIST changes: -LISI40TA PO; +LISI40TA4 PO
== END ==
LOC: M LAB REF 12:21
PROVIDERS: ATTEND Internal Medicine
DX: M10.9 Gout, unspecified (principal)

== ENCOUNTER → 2021-05-26 | Outpatient (REF) | payer MEDICARE | LOC: M LAB REF 17:04 | PROVIDERS: ATTEND Internal Medicine Nephrology | DX: N18.31 Chronic kidney disease, stage 3a (principal) ==

== ENCOUNTER → 2021-10-24 | Outpatient (REF) | payer MEDICARE ==
[~2021-10-24] MED LIST changes: -IBUP200T45 PO; +IBUP200T46 PO; +LOSA100T45 PO; -LOSA100T50 PO
== END ==
LOC: M LAB REF 16:52
PROVIDERS: ATTEND Nurse Practitioner Family
DX: N18.32 Chronic kidney disease, stage 3b (principal)

== ENCOUNTER → 2022-08-28 | Outpatient (REF) | payer MEDICARE ==
[~2022-08-28] MED LIST changes: +FISH10005 PO; -FISH7.5C PO
== END ==
LOC: M LAB REF 16:14
PROVIDERS: ATTEND Internal Medicine
DX: M10.9 Gout, unspecified (principal)

== ENCOUNTER → 2022-12-18 | Outpatient (REF) | payer MEDICARE ==
[2022-12-18 17:47] LABS: PERCENT SATURATION 9.2 % (19.7-50.0)
[2022-12-18 17:50] LABS: FERRITIN 57.6 NG/ML (10.5-307.3)
== END ==
LOC: M LAB REF 17:03
PROVIDERS: ATTEND Internal Medicine Nephrology
DX: N18.9 Chronic kidney disease, unspecified (principal); D63.1 Anemia in chronic kidney disease

== ENCOUNTER → 2023-06-25 | Outpatient (REF) | payer MEDICARE ==
[~2023-06-25] MED LIST changes: -LOSA100T45 PO; +LOSA100T46 PO
== END ==
LOC: M LAB REF 17:38
PROVIDERS: ATTEND Internal Medicine
DX: M10.9 Gout, unspecified (principal)